=== PATIENT | female | born 1980 | race Two or more races ===

== ENCOUNTER 2022-03-09 19:06 | Emergency (ER) | payer OTHER ==
[~2022-03-09] VITALS: Ht 167.6 cm; Wt 127.2 kg
[2022-03-09 20:43] VITALS: BP 129/85
== END 2022-03-10 00:14 | disposition home or self-care (01) ==
LOC: ER 19:06
DX: S13.9XXA Sprain of joints and ligaments of unspecified parts of neck, initial encounter (principal); S23.3XXA Sprain of ligaments of thoracic spine, initial encounter; Y04.8XXA Assault by other bodily force, initial encounter; Y93.89 Activity, other specified; Y92.89 Other specified places as the place of occurrence of the external cause; Y99.8 Other external cause status
CPT/HCPCS: 72040; 72070